=== PATIENT | female | born 1965 | race Caucasian/White ===

== ENCOUNTER 2022-01-23 13:55 | Inpatient (IN) | payer SELFPAY ==
[2022-01-23] VITALS (35 sets, daily range): BP systolic 101–160; BP diastolic 51–105
[~2022-01-23] VITALS: Ht 165.1 cm; Wt 102.0 kg
--- NOTE | 2022-01-23 14:25 | NUR ---
STROKE ALERT CALLED FOR PATIENT AFTER ASSESSMENT IN ROOM. PATIENT REPORTS NEW ONSET OF DIZZINESS, BLURRED VISION, SLURRED SPEECH AT 0900 TODAY.
[2022-01-23 15:19] LABS: HEMATOCRIT 41.5 % (37.0-47.0); IMMATURE GRANULOCYTES 0.5 % (0.0-5.0); MEAN CELL VOLUME 88.7 fL CALC (80.0-100.0); MEAN CORPUSCULAR HGB 34.2 pG CALC (26.0-32.0); MEAN CORPUSCULAR HGB CONC 38.6 g/dL CAL (32.0-36.0); NEUT# 16.92 thou/uL (2.00-7.15); RED BLOOD COUNT 4.68 mill/uL (4.20-5.60); RED CELL DISTRI WIDTH 11.8 % (11.5-15.5)
--- NOTE | 2022-01-23 15:30 | NUR ---
Reassessment of patient completed. PT IN ROOM WITH DAUGHTER. MEDS GIVEN, NAD
[2022-01-23 15:31] LABS: INTERNATIONAL NORMALIZED RATIO 1.1 RATIO (0.7-1.3)
[2022-01-23 15:34] LABS: ALBUMIN 4.8 g/dL (3.2-5.0); ALKALINE PHOSPHATASE 128 u/l (38-126); BILIRUBIN, TOTAL 1.8 mg/dL (0.0-1.4); BUN 7 mg/dL (7-17); BUN/CREATININE RATIO 11 (12-20 (CALC)); CARBON DIOXIDE 24 mmol/l (22-30); CREATININE 0.6 mg/dL (0.5-1.0); GFR FOR AFR.AMER. > 60 ML/MIN (>=60 (CALC)); GFR OTHER RACES > 60 ML/MIN (>=60 (CALC)); LIPASE 115 u/l (23-300); MAGNESIUM 1.4 mg/dL (1.6-2.3); POTASSIUM 3.6 mmol/l (3.5-5.1); SGOT/AST 123 u/l (14-36); TOTAL PROTEIN 7.7 g/dL (6.3-8.2)
[2022-01-23 15:41] LABS: ANION GAP 19 (6-22 (CALC)); CHLORIDE 64 mmol/l (95-108); SODIUM 103 mmol/l (137-146)
--- NOTE | 2022-01-23 15:42 | NUR ---
CRITICAL LAB VALUES GIVEN TO DR. JAIME.
[2022-01-23 16:03] LABS: CPK 3182 u/l (30-165)
--- NOTE | 2022-01-23 16:25 | NUR ---
Reassessment of patient completed. No distress noted. Pt in bed talking to her aunt
--- NOTE | 2022-01-23 17:25 | NUR ---
Pt is resting in room with her aunt by her side. Pt in going to CT scan
[2022-01-23 18:03] LABS: BUN 8 mg/dL (7-17); BUN/CREATININE RATIO 12 (12-20 (CALC)); CARBON DIOXIDE 25 mmol/l (22-30); CREATININE 0.7 mg/dL (0.5-1.0); GFR FOR AFR.AMER. > 60 ML/MIN (>=60 (CALC)); GFR OTHER RACES > 60 ML/MIN (>=60 (CALC)); POTASSIUM 3.6 mmol/l (3.5-5.1)
[2022-01-23 18:07] LABS: ANION GAP 14 (6-22 (CALC)); SODIUM 100 mmol/l (137-146)
[2022-01-23 18:08] LABS: CHLORIDE 65 mmol/l (95-108)
[2022-01-23] MEDS ORDERED: LEXAPRO10 MG PO (18:41)
[2022-01-23] MEDS ORDERED: LOSARTAN POTASS25 MG PO (18:41)
--- NOTE | 2022-01-23 18:47 | NUR ---
PT IS ADMITTED TO ICU 8. PT WAS TRANSPORTED VIA STRECTCHER. BEDSIDE REPORT GIVEN TO NIKKI. CARBALLO
[2022-01-23 19:46] LABS: POTASSIUM 3.6 mmol/l (3.5-5.1)
--- NOTE | 2022-01-23 20:00 | NUR ---
PT LOOKS TO BE ALERT AND ORIENTED. FOLLOWING COMMANDS. DIAPHORETIC WITH MILD TREMORS. PT DOES NOT LOOK TO BE DISTRESSED. REPORTS FEELING HOT AND WANTNG THE AIR TURNED DOWN. PTS VITAL SIGNS ARE WITHIN NORMAL LIMITS. SAFETY PRECAUTIONS ARE IN PLACE. PT BEING CLOSELY MONITORED.
[2022-01-23 21:29] LABS: POTASSIUM 3.5 mmol/l (3.5-5.1)
--- NOTE | 2022-01-23 22:00 | NUR ---
SHIFT REASSESSMENT - PT BECOMING MORE RESTLESS. PT GIVEN ATIVAN FOR DISTRESS. SAFETY PRECAUTIONS IN PLACE. PT BEING CLOSELY MONITORED.
[2022-01-23 23:21] LABS: URINE BILIRUBIN - DIPSTICK NEGATIVE (NEGATIVE); URINE BLOOD DIPSTICK TRACE-INTACT (NEGATIVE); URINE COLOR YELLOW; URINE GLUCOSE - DIPSTICK 250 mg/dL (NEGATIVE); URINE KETONE NEGATIVE (NEGATIVE); URINE LEUK ESTERASE NEGATIVE (NEGATIVE); URINE PROTEIN - DIPSTICK NEGATIVE (NEG-TRACE); URINE UROBILINOGEN - DIPSTICK 0.2 E.U./dL (0.2)
[2022-01-23 23:36] LABS: URINE NITRITE - DIPSTICK NEGATIVE (Negative)
[2022-01-23 23:45] LABS: POTASSIUM 3.7 mmol/l (3.5-5.1)
[2022-01-24] VITALS (95 sets, daily range): BP systolic 70–147; BP diastolic 39–130
--- NOTE | 2022-01-24 | NUR ---
SHIFT REASSESSMENT - PT COMPLETELY DISORIENTED. CIWA GREATER THEN 19. CONTACTED AND REQUESTED ATIVAN Q2HS VS Q4HS DUE TO INCREASE IN CIWA. ALSO RECEIVED ORDER TO START ATIVAN DRIP IF UNSUCCESSFUL WITH IV PUSH.
[2022-01-24 01:28] LABS: POTASSIUM 3.4 mmol/l (3.5-5.1)
--- NOTE | 2022-01-24 02:00 | NUR ---
SHIFT REASSESSMENT - PT CONTINUES TO BE SIGNIFICANTLY DISORIENTED. NO SIGNS OF SEIZURES AT THIS TIME. PT VITAL SIGNS WITHIN NORMAL LIMITS. CALL LIGHT WITHIN REACH. SAFETY PRECAUTIONS IN PLACE. PT BEING CLOSELY MONITORED.
--- NOTE | 2022-01-24 04:00 | NUR ---
SHIFT REASSESSMENT - NO CHANGE IN PT STATUS AT THIS TIME. PT ON ATIVAN DRIP AND RATE BEING TITRATED. VITAL SIGNS ARE WITHIN NORMAL LIMITS. PT BEING CLOSELY MONITORED.
--- NOTE | 2022-01-24 04:51 | NUR ---
SHIFT REASSESSMENT - NO CHANGE IN PTS STATUS AT THIS TIME.
[2022-01-24 05:51] LABS: HEMATOCRIT 39.9 % (37.0-47.0); HEMOGLOBIN 15.1 g/dl (12.0-16.0); MEAN CELL VOLUME 90.3 fL CALC (80.0-100.0); MEAN CORPUSCULAR HGB 34.2 pG CALC (26.0-32.0); MEAN CORPUSCULAR HGB CONC 37.8 g/dL CAL (32.0-36.0); RED BLOOD COUNT 4.42 mill/uL (4.20-5.60); RED CELL DISTRI WIDTH 12.1 % (11.5-15.5)
[2022-01-24 05:54] LABS: ALBUMIN 4.1 g/dL (3.2-5.0); BUN 8 mg/dL (7-17); CARBON DIOXIDE 25 mmol/l (22-30); CHLORIDE 72 mmol/l (95-108); CREATININE 0.6 mg/dL (0.5-1.0); GFR FOR AFR.AMER. > 60 ML/MIN (>=60 (CALC)); GFR OTHER RACES > 60 ML/MIN (>=60 (CALC)); POTASSIUM 3.4 mmol/l (3.5-5.1)
[2022-01-24 06:14] LABS: CPK 2785 u/l (30-165)
[2022-01-24 06:15] LABS: SODIUM 108 mmol/l (137-146)
--- NOTE | 2022-01-24 07:31 | NUR ---
PT REPORT RECEIVED FROM STRAND AND BINDER CONTROLLER. PT SLEEPING WITH ATIVAN GTT AT 3, SEIZURE PADS IN PLACE, BED IN LOW POSITION.
--- NOTE | 2022-01-24 08:52 | NUR ---
DR. SÁNCHEZ IS AT BEDSIDE, WILL ORDER NEB TX FOR PT, AND STATES TO HOLD OFF ON NS AT THIS TIME UNTIL MVI HAS INFUSED, AND WILL CONTINUE TO MONITER LAB EVERY 4 HOURS
--- NOTE | 2022-01-24 10:12 | NUR ---
PT STARTING TO WAKE UP, COUGHING WITH YELLOWISH SPUTUM, STATES ALWAYS DOES THIS FIRST THING IN AM, SHE STATES SHE SMOKES ABOUT 1-2 PACKS A DAY FOR YEARS. I SPOKE TO HER ABOUT HER LOW SODIUM AND SHE STATES SHE HAS HAD PROBLEMS WITH THAT FOR YEARS AND HER DOCTOR KNOWS ABOUT IT. EXPLAINED ABOUT HER PLAN OF CARE. PT ASKED TO URINATE, BEDPAN PLACED AND PT URINATED APPROX 150CC OF DARK YELLOW URINE. MVI BAG INFUSING, MAGNESIUM BAG INFUSING,
--- NOTE | 2022-01-24 11:51 | NUR ---
PT CONTINUES TO REST OFF AND ON, WHEN SHE IS AWAKE PT IS ALERET/ORIENTED, WATCHING TV, THEN WILL DOSE BACK OFF,
[2022-01-24 12:55] LABS: BUN 7 mg/dL (7-17); BUN/CREATININE RATIO 11 (12-20 (CALC)); CARBON DIOXIDE 28 mmol/l (22-30); CHLORIDE 76 mmol/l (95-108); CREATININE 0.6 mg/dL (0.5-1.0); GFR FOR AFR.AMER. > 60 ML/MIN (>=60 (CALC)); GFR OTHER RACES > 60 ML/MIN (>=60 (CALC)); POTASSIUM 3.4 mmol/l (3.5-5.1)
--- NOTE | 2022-01-24 12:56 | NUR ---
PT HAS BEEN WEANED ON ATIVAN GTT TO A 1 MG, RESTING QUIETLY WITH NO COMPLAINTS AT THIS TIME. MVI STILL INFUSING.
[2022-01-24 12:57] LABS: ANION GAP 12 (6-22 (CALC))
[2022-01-24 12:58] LABS: SODIUM 113 mmol/l (137-146)
--- NOTE | 2022-01-24 14:09 | NUR ---
ATIVAN DRIP DISCONTINUED AT THIS TIME. PT DOES NOT APPEAR TO BE AGITATED OR RESTLESS. STILL SLEEPING OFF AND ON, WILL CONTINUE TO MONITER PT.
--- NOTE | 2022-01-24 15:40 | NUR ---
PT RESTING QUIETLY AT THIS TIME, AWAKENS EASILY, STATES HAS HAD THE BEST SLEEP IN A HOSPITAL THAN SHE HAS EVER HAD. LAUGHING AND JOKING WITH STAFF, BEDPAN USED FOR URINATION.
[2022-01-24 17:07] LABS: POTASSIUM 2.9 mmol/l (3.5-5.1)
--- NOTE | 2022-01-24 17:24 | NUR ---
PT ASKING FOR PHONE TO CALL FAMILY. SITTING UP IN BED WATCHING TV. NO COMPLAINTS AT THIS TIME
--- NOTE | 2022-01-24 17:57 | NUR ---
VISITOR AT BEDSIDE, LOOKING FOR PHONE, STATES IT CAME UP WITH PT FROM ER BUT HAS NOT BEEN SEEN SINCE THEN.
[2022-01-24 18:36] LABS: ANION GAP 10 (6-22 (CALC)); BUN 6 mg/dL (7-17); BUN/CREATININE RATIO 11 (12-20 (CALC)); CARBON DIOXIDE 28 mmol/l (22-30); CHLORIDE 79 mmol/l (95-108); CREATININE 0.6 mg/dL (0.5-1.0); GFR FOR AFR.AMER. > 60 ML/MIN (>=60 (CALC)); GFR OTHER RACES > 60 ML/MIN (>=60 (CALC)); POTASSIUM 3.2 mmol/l (3.5-5.1)
[2022-01-24 18:51] LABS: SODIUM 114 mmol/l (137-146)
--- NOTE | 2022-01-24 20:00 | NUR ---
PT IS ALERT AND ORIENTED, FOLLOWING COMMANDS. PT LOOKS MILDLY ANXIOUS BUT DENIES ANY DISTRESSED. PT REPORTS FEELING BETTER. IV VITAMIN BAD COMPLETED. RECEIVED CALL FROM TO STOP ANY ADDITIONAL IV FLUIDS. VITAL SIGNS ARE WITHIN NORMAL LIMITS. SAFETY PRECAUTIONS ARE IN PLACE. PT BEING CLOSELY MONITORED.
[2022-01-24 20:39] LABS: POTASSIUM 2.7 mmol/l (3.5-5.1)
--- NOTE | 2022-01-24 22:00 | NUR ---
SHIFT REASSESSMENT - PT MORE AGGITATED. SHOWING SIGNS OF WITHDRAWL. SWEATHING AND RESTLESS. PT REPORTS HER PHONE BEING MISPLACED, UNABLE TO FIND IT. SHE DID HAVE THE ICU CORDNESS PHONE, BUT ACCIDENTLY DROPPED IT IN WATER. PT REPORTS CONCERN THAT SHE WOULD LIKE TO SPEAK TO HER SON, BUT HER SON IS ONLY ABLE TO CALL ON A LINE DIRECTLY TO HER. PT BELEIVES IT COULD HAVE GONE DOWN WITH THE LAUNDRY. INFORMED INTE[employer] PROGRAMS DIRECTOR AND HOUSEKEEPING ABOUT LOST PHONE. HOUSEKEEPING SENDS LAUDRY OUT, AND IS UNAWARE BUT WILL ASK AROUND. PT WAS ADMITTED BY MYSELF LAST NIGHT AND I DID NOT SEE A PHONE. PT DID HAVE FAMILY AT BEDSIDE DURING ADMISSION AND ALL PERSONAL POSSESSIONS WERE TAKEN WITH FAMILY TO MY KNOWLEDGE.
[2022-01-25] VITALS (48 sets, daily range): BP systolic 63–139; BP diastolic 33–94
--- NOTE | 2022-01-25 | NUR ---
SHIFT REASSESSMENT - PT LOOKS TO BE GETTING SOME REST AT THIS TIME. VITAL SIGNS ARE WITHIN NORMAL LIMITS. CALL LIGHT WITHIN HER REACH.
[2022-01-25 00:31] LABS: ANION GAP 11 (6-22 (CALC)); BUN 8 mg/dL (7-17); BUN/CREATININE RATIO 11 (12-20 (CALC)); CARBON DIOXIDE 31 mmol/l (22-30); CHLORIDE 86 mmol/l (95-108); CREATININE 0.7 mg/dL (0.5-1.0); GFR FOR AFR.AMER. > 60 ML/MIN (>=60 (CALC)); GFR OTHER RACES > 60 ML/MIN (>=60 (CALC)); SODIUM 124 mmol/l (137-146)
[2022-01-25 00:34] LABS: POTASSIUM 3.6 mmol/l (3.5-5.1)
--- NOTE | 2022-01-25 02:00 | NUR ---
SHIFT REASSESSMENT - PT LOOKS TO BE ASLEEP. VITAL SIGNS ARE WITHIN NORMAL LIMITS. SAFETY PRECAUTIONS ARE IN PLACE. CALL LIGHT WITHIN HER REACH.
--- NOTE | 2022-01-25 03:56 | NUR ---
SHIFT REASSESSMENT - PT AWAKE AND UNABLE TO SETTING BACK DOWN TO GO TO SLEEP. HIGHLY RESTLESS AND AGGITATED. CIWA AT ABOUT 19. PT LOOKS HIGHLY DISTRESSED. ATIVAN GIVEN.
[2022-01-25 05:26] LABS: HEMATOCRIT 41.4 % (37.0-47.0); HEMOGLOBIN 15.2 g/dl (12.0-16.0); MEAN CELL VOLUME 94.5 fL CALC (80.0-100.0); MEAN CORPUSCULAR HGB 34.7 pG CALC (26.0-32.0); MEAN CORPUSCULAR HGB CONC 36.7 g/dL CAL (32.0-36.0); RED BLOOD COUNT 4.38 mill/uL (4.20-5.60); RED CELL DISTRI WIDTH 12.8 % (11.5-15.5)
[2022-01-25 05:32] LABS: ANION GAP 12 (6-22 (CALC)); BUN 9 mg/dL (7-17); BUN/CREATININE RATIO 13 (12-20 (CALC)); CARBON DIOXIDE 28 mmol/l (22-30); CHLORIDE 88 mmol/l (95-108); CREATININE 0.7 mg/dL (0.5-1.0); GFR FOR AFR.AMER. > 60 ML/MIN (>=60 (CALC)); GFR OTHER RACES > 60 ML/MIN (>=60 (CALC)); POTASSIUM 3.3 mmol/l (3.5-5.1); SODIUM 125 mmol/l (137-146)
[2022-01-25 05:34] LABS: BUN 9 mg/dL (7-17); CARBON DIOXIDE 30 mmol/l (22-30); CHLORIDE 89 mmol/l (95-108); CREATININE 0.7 mg/dL (0.5-1.0); GFR FOR AFR.AMER. > 60 ML/MIN (>=60 (CALC)); GFR OTHER RACES > 60 ML/MIN (>=60 (CALC)); POTASSIUM 3.5 mmol/l (3.5-5.1); SODIUM 125 mmol/l (137-146)
[2022-01-25 05:36] LABS: MAGNESIUM 2.7 mg/dL (1.6-2.3)
--- NOTE | 2022-01-25 06:00 | NUR ---
SHIFT REASSESSMENT - PT RESTLESS, BUT LOOKS TO BE FEELING A LITTLE MORE CALM SINCE RECEIVING ATIVAN. VITAL SIGNS ARE WITHIN NORMAL LIMITS. PTS CALL LIGHT WITHIN REACH. PT BEING CLOSELY MONITORED.
--- NOTE | 2022-01-25 06:58 | NUR ---
report received from night warehouse selector. pt is alert/oriented x3, no trembling noted. asking questions about if she will be discharged today, advised that the doctor would be in this am, and she can direct her questions to him about when his plan for discharge would be. states she is concerned about her cellphone that she can not find that she said was brought to icu with her. night warehouse selector states that they called housekeeping for them to be notified about linens to see if they found it. no complaints at this time , calmy talks to staff with eye contact.
--- NOTE | 2022-01-25 08:17 | NUR ---
WILL HOLD THE SALT TABLETS PER DR. SÁNCHEZ FOR THIS AM
[2022-01-25 08:26] LABS: POTASSIUM 3.2 mmol/l (3.5-5.1)
--- NOTE | 2022-01-25 12:02 | NUR ---
PT SLEEPING AT THIS TIME, VITAL SIGNS STABLE. MVI INFUSING
--- NOTE | 2022-01-25 12:37 | NUR ---
PT RECEIVING BREATHING TREATMENT.
[2022-01-25 12:44] LABS: ANION GAP 10 (6-22 (CALC)); BUN 11 mg/dL (7-17); BUN/CREATININE RATIO 14 (12-20 (CALC)); CARBON DIOXIDE 31 mmol/l (22-30); CHLORIDE 91 mmol/l (95-108); CREATININE 0.8 mg/dL (0.5-1.0); GFR FOR AFR.AMER. > 60 ML/MIN (>=60 (CALC)); GFR OTHER RACES > 60 ML/MIN (>=60 (CALC)); POTASSIUM 3.1 mmol/l (3.5-5.1); SODIUM 128 mmol/l (137-146)
--- NOTE | 2022-01-25 12:59 | NUR ---
PT STATES BECOMING MORE ANXIOUS, AND RESTLESS, ASKING FOR SOMETHING TO CALM HER DOWN.
--- NOTE | 2022-01-25 14:26 | NUR ---
PT UP WALKING WITH PHYSICAL THERAPIST. DID WELL FOR FIRST WALK. NO DIZZINESS NOTED.
--- NOTE | 2022-01-25 14:51 | NUR ---
PT SITTING UP IN CHAIR WATCHING TV.
--- NOTE | 2022-01-25 16:21 | NUR ---
PT BACK IN BED, TALKING ON PORTABLE PHONE REQUESTING AUNT TO BUY A PHONE FOR HER SINCE SHE IS MISSING THE ONE THAT SHE HAD BROUGHT INTO HOSPITAL
[2022-01-25 18:21] LABS: ANION GAP 8 (6-22 (CALC)); BUN 11 mg/dL (7-17); BUN/CREATININE RATIO 16 (12-20 (CALC)); CARBON DIOXIDE 31 mmol/l (22-30); CHLORIDE 94 mmol/l (95-108); CREATININE 0.7 mg/dL (0.5-1.0); GFR FOR AFR.AMER. > 60 ML/MIN (>=60 (CALC)); GFR OTHER RACES > 60 ML/MIN (>=60 (CALC)); POTASSIUM 3.3 mmol/l (3.5-5.1); SODIUM 129 mmol/l (137-146)
--- NOTE | 2022-01-25 18:30 | NUR ---
DR. SÁNCHEZ CALLED TO SAY PT COULD BE DOWNGRADED TO MED SURG. MED SURG WILL CALL WHEN ROOM IS AVAILABLE.
--- NOTE | 2022-01-25 20:00 | NUR ---
PT ALERT AND ORIENTED. WAS ABLE TO GET OUT OF BED INDEPENDENTLY TO USE THE RESTROOM. LOOKS TO BE IN GOOD SPIRITS. FAMILY AT BEDSIDE ASSISTING WITH SETTING UP HER NEW CELL PHONE. PT EXPLAINS THAT SHE WOULD LIKE TO RECEIVE ATIVAN AT SOME POINT THIS EVENING TO HELP HER SLEEP. EXPLAINED PURPOSE OF ATIVAN AND CIWA PARAMETERS. PT DOES NOT MEET REQUIREMENT FOR ATIVAN AT THIS TIME. PT DOES NOT LOOK TO BE IN ANY DISTRESS. WILL CONTINUE TO MONITOR.
--- NOTE | 2022-01-25 22:00 | NUR ---
SHIFT REASSESSMENT - PT RESTING COMFORTABLY AT THIS TIME. LOOKS TO BE SLEEPING. NO CHANGE IN PT STATUS SINCE INITIAL ASSESSMENT.
[2022-01-26] VITALS (23 sets, daily range): BP systolic 94–139; BP diastolic 47–85
--- NOTE | 2022-01-26 | NUR ---
SHIFT REASSESSMENT - PT REPORTS NOT BEING ABLE TO SLEEP. CONTACTED DR.RAJ PACHECO RECEIVED ORDER FOR RESTORIL AT NIGHT. PT BEING CLOSELY MONITORED.
--- NOTE | 2022-01-26 02:00 | NUR ---
SHIFT REASSESSMENT - PT AWAKE ASKING FOR A SNACK. PT ALREADY RECEIVED RESTIRIL.
--- NOTE | 2022-01-26 04:00 | NUR ---
SHIFT REASSESSMENT - PT ALERT AND ORIENTED. PT REPORTS FEELING BETTER. FINALLY GETTING SOME SLEEP. CALL LIGHT WITHIN HER REACH. PT BEING CLOSELY MONITORED.
[2022-01-26 05:56] LABS: HEMATOCRIT 38.9 % (37.0-47.0); HEMOGLOBIN 13.7 g/dl (12.0-16.0); MEAN CELL VOLUME 98.5 fL CALC (80.0-100.0); MEAN CORPUSCULAR HGB 34.7 pG CALC (26.0-32.0); MEAN CORPUSCULAR HGB CONC 35.2 g/dL CAL (32.0-36.0); RED BLOOD COUNT 3.95 mill/uL (4.20-5.60); RED CELL DISTRI WIDTH 13.5 % (11.5-15.5)
--- NOTE | 2022-01-26 06:00 | NUR ---
SHIFT REASSESSMENT - NO CHANGE IN PT STATUS AT THIS TIME. CALL LIGHT WITHIN REACH. PT BEING CLOSELY MONITORED.
[2022-01-26 06:10] LABS: ALBUMIN 3.5 g/dL (3.2-5.0); BUN 12 mg/dL (7-17); CARBON DIOXIDE 27 mmol/l (22-30); CHLORIDE 97 mmol/l (95-108); CREATININE 0.6 mg/dL (0.5-1.0); GFR FOR AFR.AMER. > 60 ML/MIN (>=60 (CALC)); GFR OTHER RACES > 60 ML/MIN (>=60 (CALC)); MAGNESIUM 2.4 mg/dL (1.6-2.3); SODIUM 131 mmol/l (137-146)
[2022-01-26 06:11] LABS: POTASSIUM 4.1 mmol/l (3.5-5.1)
[2022-01-26] MEDS ORDERED: MEDDOSEPAK PO (09:12)
[2022-01-26] MEDS ORDERED: ZITHROMAX250 MG PO (09:14)
[2022-01-26] MEDS ORDERED: LOSARTAN POTASS25 MG PO (09:14)
[2022-01-26] MEDS ORDERED: XANAX0.25 MG PO (09:15)
== END 2022-01-26 11:04 | disposition home or self-care (01) | DRG 641 ==
LOC: ED 13:55 → ICU 17:15
PROVIDERS: Internal Medicine; Internal Medicine Nephrology; ADMIT Internal Medicine; ATTEND Internal Medicine
DX: E87.1 Hypo-osmolality and hyponatremia (principal); M62.82 Rhabdomyolysis; J44.1 Chronic obstructive pulmonary disease with (acute) exacerbation; F10.239 Alcohol dependence with withdrawal, unspecified; E83.42 Hypomagnesemia; R74.8 Abnormal levels of other serum enzymes; I10 Essential (primary) hypertension; E87.6 Hypokalemia; T50.2X5A Adverse effect of carbonic-anhydrase inhibitors, benzothiadiazides and other diuretics, initial encounter; F17.200 Nicotine dependence, unspecified, uncomplicated
CPT/HCPCS: J1650; J2060; J3475; Q9967; S0164